=== PATIENT | male | born 1965 | race African-American/Black ===

== ENCOUNTER 2018-04-06 11:36 | Emergency (ER) | payer MEDICAID ==
[~2018-04-06] VITALS: Ht 177.8 cm; Wt 100.5 kg
[2018-04-06 11:40] VITALS: Ht 177.8 cm; Wt 100.5 kg
[2018-04-06] MEDS ORDERED: IBUPROFEN800 MG PO (11:41)
[2018-04-06] MEDS ORDERED: NORCO 7.5/325 T1 TA1 PO (13:58)
[2018-04-06] MEDS ORDERED: MEDROL DOSE PACK4 MG PO (13:58)
[2018-04-06 14:14] VITALS: BP 145/88
== END 2018-04-06 14:15 | disposition home or self-care (01) ==
LOC: D.ER 11:36
DX: S60.212A Contusion of left wrist, initial encounter (principal); S50.02XA Contusion of left elbow, initial encounter; W10.9XXA Fall (on) (from) unspecified stairs and steps, initial encounter; Y93.89 Activity, other specified; Y92.019 Unspecified place in single-family (private) house as the place of occurrence of the external cause; S86.912A Strain of unspecified muscle(s) and tendon(s) at lower leg level, left leg, initial encounter; F17.200 Nicotine dependence, unspecified, uncomplicated